=== PATIENT | female | born 1995 | race Caucasian/White ===

== ENCOUNTER 2019-07-28 21:41 | Emergency (ER) | payer SELFPAY | END 2019-07-28 22:50 | disposition left against medical advice (07) | LOC: ED 21:41 | DX: Z53.21 Procedure and treatment not carried out due to patient leaving prior to being seen by health care provider (principal) ==

== ENCOUNTER 2019-07-29 18:43 | Emergency (ER) | payer SELFPAY ==
[~2019-07-29] VITALS: Ht 154.9 cm; Wt 52.2 kg
[2019-07-29 18:50] VITALS: BP 108/68; Ht 154.9 cm; Wt 52.2 kg
== END 2019-07-29 21:12 | disposition left against medical advice (07) ==
LOC: ED 18:43
DX: Z53.21 Procedure and treatment not carried out due to patient leaving prior to being seen by health care provider (principal)